=== PATIENT | female | born 1965 | race Caucasian/White ===

== ENCOUNTER → 2018-01-31 | Outpatient (REF) | payer OTHER ==
[2018-01-31 15:56] LABS: ESTIMATED AVERAGE GLUCOSE 120 MG/DL (60-110); HEMOGLOBIN A1c 5.8 %
[2018-01-31 16:09] LABS: ALBUMIN 3.8 GM/DL (3.2-5.2); ALBUMIN/GLOBULIN RATIO 0.93 (1.00-1.93); ALKALINE PHOSPHATASE 100 U/L (45-117); ALT/SGPT 25 U/L (12-78); ANION GAP 10 MEQ/L (8-16); AST/SGOT 20 U/L (7-37); BILIRUBIN,TOTAL 0.3 MG/DL (0.2-1.0); BLOOD UREA NITROGEN 8 MG/DL (7-18); CARBON DIOXIDE LEVEL 20 MEQ/L (21-32); CHLORIDE LEVEL 108 MEQ/L (98-107); GLOMERULAR FILTRATION RATE > 60.0 (>51); GLUCOSE, FASTING 83 MG/DL (70-100); POTASSIUM SERUM 4.2 MEQ/L (3.5-5.1); RHEUMATOID FACTOR QUANT < 10.0 IU/ML (<15.0); SODIUM LEVEL 138 MEQ/L (136-145); TOTAL PROTEIN 7.9 GM/DL (6.4-8.2)
== END ==
LOC: M SFHCPLAZ 14:13
DX: M19.90 Unspecified osteoarthritis, unspecified site (principal); R73.02 Impaired glucose tolerance (oral)

== ENCOUNTER → 2018-06-03 | Outpatient (CLI) | payer OTHER | LOC: M ADAMS 10:19 | DX: M54.5 Low back pain (principal) | CPT/HCPCS: 72110 ==

== ENCOUNTER → 2018-08-09 | Outpatient (REF) | payer OTHER ==
[2018-08-09 13:28] LABS: HEMATOCRIT 39.3 % (36.0-47.0); HEMOGLOBIN 12.6 g/dl (12.0-15.5); MEAN CORPUSCULAR HEMOGLOBIN 27.1 pg (27.0-33.0); MEAN CORPUSCULAR HGB CONC 32.1 g/dl (32.0-36.5); MEAN CORPUSCULAR VOLUME 84.5 fl (80.0-96.0); PLATELET COUNT, AUTOMATED 432 10^3/uL (150-450); RED BLOOD COUNT 4.65 10^6/uL (4.00-5.40); WHITE BLOOD COUNT 8.3 10^3/uL (4.0-10.0)
[2018-08-09 14:04] LABS: ALBUMIN 3.9 GM/DL (3.2-5.2); ALBUMIN/GLOBULIN RATIO 1.15 (1.00-1.93); ALKALINE PHOSPHATASE 95 U/L (45-117); ALT/SGPT 30 U/L (12-78); ANION GAP 9 MEQ/L (8-16); AST/SGOT 21 U/L (7-37); BILIRUBIN,TOTAL 0.4 MG/DL (0.2-1.0); BLOOD UREA NITROGEN 9 MG/DL (7-18); CALCIUM LEVEL 9.2 MG/DL (8.5-10.1); CARBON DIOXIDE LEVEL 23 MEQ/L (21-32); CHLORIDE LEVEL 105 MEQ/L (98-107); CHOLESTEROL LEVEL 182 MG/DL (<200); GLOMERULAR FILTRATION RATE > 60.0 (>51); GLUCOSE, FASTING 86 MG/DL (70-100); HDL CHOLESTEROL 50 MG/DL (>40); LDL CHOLESTEROL 109 MG/DL (<100); NON-HDL-C 132 MG/DL; POTASSIUM SERUM 4.3 MEQ/L (3.5-5.1); SODIUM LEVEL 137 MEQ/L (136-145); TOTAL PROTEIN 7.3 GM/DL (6.4-8.2); TRIGLYCERIDES LEVEL 116 MG/DL (<150)
[2018-08-09 14:05] LABS: ESTIMATED AVERAGE GLUCOSE 128 MG/DL (60-110); HEMOGLOBIN A1c 6.1 %
== END ==
LOC: M SFHCPLAZ 11:42
DX: Z00.00 Encounter for general adult medical examination without abnormal findings (principal); N95.1 Menopausal and female climacteric states; R73.02 Impaired glucose tolerance (oral); Z13.220 Encounter for screening for lipoid disorders; Z83.49 Family history of other endocrine, nutritional and metabolic diseases
CPT/HCPCS: 84443

== ENCOUNTER → 2020-04-18 | Outpatient (REF) | payer OTHER ==
[2020-06-02 16:10] LABS: ALBUMIN 4.3 GM/DL (3.2-5.2); ALT/SGPT 31 U/L (12-78); BILIRUBIN,TOTAL 0.4 MG/DL (0.2-1.0); BLOOD UREA NITROGEN 13 MG/DL (7-18); CALCIUM LEVEL 9.7 MG/DL (8.5-10.1); CARBON DIOXIDE LEVEL 27 MEQ/L (21-32); CHLORIDE LEVEL 104 MEQ/L (98-107); CHOLESTEROL LEVEL 164 MG/DL (<200); CHOLESTEROL RISK RATIO 3.416 (<5); CREATININE FOR GFR 1.01 MG/DL (0.55-1.30); GLOMERULAR FILTRATION RATE > 60.0 (>51); GLUCOSE, FASTING 86 MG/DL (70-100); HDL CHOLESTEROL 48 MG/DL (>40); HEMOGLOBIN A1c 5.8 %; LDL CHOLESTEROL 94 MG/DL (<100); NON-HDL-C 116 MG/DL; POTASSIUM SERUM 4.4 MEQ/L (3.5-5.1); SODIUM LEVEL 136 MEQ/L (136-145); TOTAL 25(OH) VITAMIN D 31.8 NG/ML (30.0-100.0); TOTAL PROTEIN 8.5 GM/DL (6.4-8.2); TRIGLYCERIDES LEVEL 109 MG/DL (<150)
== END ==
LOC: M SFHCPLAZ 17:12
PROVIDERS: ATTEND Nurse Practitioner Adult Health
DX: E55.9 Vitamin D deficiency, unspecified (principal); R63.4 Abnormal weight loss; G43.909 Migraine, unspecified, not intractable, without status migrainosus; Z13.29 Encounter for screening for other suspected endocrine disorder; Z13.220 Encounter for screening for lipoid disorders

== ENCOUNTER → 2021-01-14 | Outpatient (REF) | payer OTHER ==
[2021-01-14 14:36] LABS: ALBUMIN 3.9 GM/DL (3.2-5.2); ALT/SGPT 25 U/L (12-78); BILIRUBIN,TOTAL 0.3 MG/DL (0.2-1.0); BLOOD UREA NITROGEN 10 MG/DL (7-18); CALCIUM LEVEL 9.6 MG/DL (8.5-10.1); CARBON DIOXIDE LEVEL 26 MEQ/L (21-32); CHLORIDE LEVEL 109 MEQ/L (98-107); CHOLESTEROL LEVEL 207 MG/DL (<200); CREATININE FOR GFR 0.74 MG/DL (0.55-1.30); GLOMERULAR FILTRATION RATE > 60.0 (>51); GLUCOSE, FASTING 87 MG/DL (70-100); HDL CHOLESTEROL 52 MG/DL (>40); LDL CHOLESTEROL 118 MG/DL (<100); NON-HDL-C 155 MG/DL; POTASSIUM SERUM 4.5 MEQ/L (3.5-5.1); SODIUM LEVEL 140 MEQ/L (136-145); TOTAL PROTEIN 7.8 GM/DL (6.4-8.2); TRIGLYCERIDES LEVEL 183 MG/DL (<150)
[2021-01-14 14:46] LABS: HEMOGLOBIN A1c 5.9 %
== END ==
LOC: M SFHCPLAZ 11:52
PROVIDERS: ATTEND Nurse Practitioner Adult Health
DX: Z00.00 Encounter for general adult medical examination without abnormal findings (principal); R73.02 Impaired glucose tolerance (oral); Z83.49 Family history of other endocrine, nutritional and metabolic diseases; Z13.220 Encounter for screening for lipoid disorders

== ENCOUNTER → 2022-01-15 | Outpatient (CLI) | payer OTHER ==
[2022-01-15 14:38] LABS: ALT/SGPT 30 U/L (12-78); BILIRUBIN,TOTAL 0.4 MG/DL (0.2-1.0); BLOOD UREA NITROGEN 10 MG/DL (7-18); CALCIUM LEVEL 10.1 MG/DL (8.5-10.1); CARBON DIOXIDE LEVEL 25 MEQ/L (21-32); CHLORIDE LEVEL 109 MEQ/L (98-107); CHOLESTEROL LEVEL 199 MG/DL (<200); CHOLESTEROL RISK RATIO 3.685 (<5); CREATININE FOR GFR 0.87 MG/DL (0.55-1.30); GLOMERULAR FILTRATION RATE > 60.0 (>51); GLUCOSE, FASTING 89 MG/DL (70-100); HDL CHOLESTEROL 54 MG/DL (>40); LDL CHOLESTEROL 123 MG/DL (<100); NON-HDL-C 145 MG/DL; POTASSIUM SERUM 4.7 MEQ/L (3.5-5.1); SODIUM LEVEL 139 MEQ/L (136-145); TOTAL 25(OH) VITAMIN D 19.6 NG/ML (30.0-100.0); TOTAL PROTEIN 7.7 GM/DL (6.4-8.2); TRIGLYCERIDES LEVEL 108 MG/DL (<150)
[2022-01-15 18:48] LABS: HEMOGLOBIN A1c 5.6 %
== END ==
LOC: M PLALAB 11:27
PROVIDERS: ATTEND Nurse Practitioner Adult Health
DX: R73.02 Impaired glucose tolerance (oral) (principal); Z13.21 Encounter for screening for nutritional disorder

== ENCOUNTER → 2022-03-23 | Outpatient (CLI) | payer OTHER | LOC: M PLAIMG 15:56 | PROVIDERS: ATTEND Physician Assistant | DX: R07.9 Chest pain, unspecified (principal) ==

== ENCOUNTER → 2023-09-14 | Outpatient (CLI) | payer OTHER | LOC: M RAD 15:46 | PROVIDERS: ATTEND Nurse Practitioner Adult Health | DX: M79.604 Pain in right leg (principal) ==

== ENCOUNTER 2025-03-29 08:51 | Emergency (ER) | payer OTHER, SELFPAY ==
[~2025-03-29] VITALS: Ht 172.7 cm; Wt 99.1 kg
[2025-03-29 12:00] LABS: BASO # 0.1 10^3/uL (0.0-0.2); BASO % 0.3 % (0.0-1.0); EOS # 0.0 10^3/uL (0.0-0.5); EOS % 0.2 % (0.0-3.0); LYMPH # 2.6 10^3/uL (1.5-5.0); LYMPH % 16.6 % (24.0-44.0); MONO # 0.9 10^3/uL (0.0-0.8); MONO % 5.5 % (2.0-8.0); NEUTROPHILS # 12.2 10^3/uL (1.5-8.5); NEUTROPHILS % 77.0 % (36.0-66.0); PLATELET COUNT, AUTOMATED 413 10^3/uL (150-450)
[2025-03-29] MEDS ORDERED: ISOVUE-370 76% 100 ML VIAL As Ordered ONE (12:13)
[2025-03-29 12:16] LABS: INR 1.02
[2025-03-29 12:23] LABS: CK-MB VALUE MASS 1.1 NG/ML (<3.6)
[2025-03-29 12:27] LABS: ALT/SGPT 37 U/L (7.0-40); AST/SGOT 31 U/L (<34); CALCIUM LEVEL 9.9 MG/DL (8.3-10.6); CARBON DIOXIDE LEVEL 20 MMOL/L (20-31); CHLORIDE LEVEL 104 MMOL/L (98-107); CREATININE FOR GFR 0.60 MG/DL (0.55-1.30); GLOMERULAR FILTRATION RATE > 90.0 (>45); POTASSIUM SERUM 4.1 MMOL/L (3.5-5.1); SODIUM LEVEL 141 MMOL/L (136-145)
[2025-03-29 12:35] LABS: CPK CREATINE PHOSPHOKINASE 124 U/L (34-145); MB/CK RELATIVE INDEX 0.88 (< OR =4)
[2025-03-29] MEDS: PANTOPRAZOLE 40MG VIAL IV ONE (13:02)
[2025-03-29] MEDS: MORPHINE 4 MG/ML 1 ML VIAL IV ONE (13:03)
[2025-03-29] MEDS: ONDANSETRON 4MG 2ML VIAL IV ONE (13:03)
[2025-03-29] MEDS: NS (Normal Saline) 0.9% 1,000 ML IV SCH (13:03)
[2025-03-29] MEDS: NS (Normal Saline) 0.9% 1,000 ML IV ONE (13:04)
[2025-03-29] MEDS ORDERED: FIDAXOMICIN 200 MG TAB PO ONE (14:45)
[2025-03-29 14:59] LABS: KETONE, URINE AUTO RFX NEGATIVE (NEGATIVE); LEUKOCYTE ESTERASE UR AUTO RFX NEGATIVE (NEGATIVE); NITRITE, URINE AUTO RFX NEGATIVE (NEGATIVE); RBC, URINE AUTO RFX 0 /HPF (0-3); SQUAM EPITHELIAL CELL UR AURFX 0 /HPF (0-6); WBC, URINE AUTO RFX 0 /HPF (0-3)
[2025-03-29] MEDS ORDERED: VANCOMYCIN HCL 500 MG in IV FLUID PLACE HOLDER 1 EA IV ONE (15:00)
[2025-03-29] MEDS: VANCOMYCIN 125MG CAPSULE PO ONE (17:07)
[2025-03-29] MEDS ORDERED: VANC125C13 PO (17:35)
[2025-03-29 17:57] VITALS: BP 123/58; TEMP 99; O2SAT 96
== END 2025-03-29 18:36 | disposition home or self-care (01) ==
LOC: M ED 08:51
DX: R10.9 Unspecified abdominal pain (principal); R19.7 Diarrhea, unspecified; Z88.8 Allergy status to other drugs, medicaments and biological substances; Z79.899 Other long term (current) drug therapy
CPT/HCPCS: 36415; 71045; 74174; 80047; 80048; 80076; 81001; 82150; 82550; 82553; 83605; 83690; 84484; 85025; 85610; 85730; 86850; 86900; 86901; 87040; 87507; 93005; 93041; 96365; 96366; 99285; J2405; J2470; Q9967